=== PATIENT | male | born 1945 | race Caucasian/White ===

== ENCOUNTER 2018-05-18 11:40 | Inpatient (IN) | payer MEDICARE, OTHER ==
[~2018-05-18] VITALS: Ht 182.9 cm; Wt 129.3 kg
[~2018-05-18 11:40] MED LIST: ACYC800 PO; ASPI81EC PO; ATEN100 PO; Aspir 8181 MG PO; CELE200 PO; Cialis20 MG PO; Dyazide 37.5-21 EACH PO; LOSARTAN POTAS100 MG PO; NEBI10 PO; NIAC500 PO; PRED5 PO; SIMV40 PO
--- NOTE | 2018-05-19 07:00 | NUR ---
Pre-Op teaching done. Pt verbalizes understanding.Ambulatory in Day Surgery History, Chart, Medications and Allergies reviewed before start of procedure. Lungs clear T/O to Auscultation. Patient confirms NPO status and agrees with scheduled surgery.
--- NOTE | 2018-05-20 04:38 | NUR ---
SUMMARY: PT IS POD1 R SANDY. NO ACUTE CHANGE OVERNIGHT. A/O, VSS, PT EATING AND VOIDING. PAIN MANAGED WITH 1 OXYCODONE ABOUT Q4. PT ABLE TO WALK IN HALLS X2, SURGICAL SITE WNL. WORE CPAP WITH SLEEP. NO SAFETY CONCERNS AT THIST TIME.
[2018-05-20 05:51] LABS: BASOPHILS ABSOLUTE AUTO 0.02 K/mm3 (0.00-0.23); BASOPHILS PERCENT AUTO 0 % (0-2); EOSINOPHILS PERCENT AUTO 0 % (0-6); Hematocrit 36.7 % (37.0-53.0); Hemoglobin 11.7 g/dL (13.5-17.5); IMMATURE GRAN ABSOLUTE AUTO 0.13 K/mm3 (0.00-0.10); IMMATURE GRAN PERCENT AUTO 1 % (0-1); LYMPHOCYTES ABSOLUTE AUTO 1.06 K/mm3 (0.84-5.20); LYMPHOCYTES PERCENT AUTO 7 % (21-46); MONOCYTES ABSOLUTE AUTO 1.11 K/mm3 (0.16-1.47); MONOCYTES PERCENT AUTO 7 % (4-13); Mean Corpuscular HGB Conc 31.9 g/dL (31.5-36.5); Mean Corpuscular Volume 88 fL (80-100); Mean Platelet Volume 9.6 fL (9.1-12.4); NEUTROPHILS ABSOLUTE AUTO 12.63 K/mm3 (1.96-9.15); NEUTROPHILS PERCENT AUTO 85 % (41-73); Platelet Count 222 K/mm3 (150-400); RDW Coefficient Variation 13.7 % (11.7-14.2); RDW Standard Deviation 44.7 fL (35.1-46.3); Red Blood Cell Count 4.18 M/mm3 (4.30-5.90); White Blood Cell Count 14.95 K/mm3 (4.00-11.30)
[2018-05-20 06:14] LABS: Bun/Creatinine Ratio 26.9 (12.0-20.0); Calcium, Blood 8.5 mg/dL (8.5-10.1); Creatinine, Blood 1.3 mg/dL (0.60-1.20); Magnesium, Blood 2.3 mg/dL (1.6-2.4); Potassium, Blood 4.8 mmol/L (3.5-5.5)
[2018-05-20] MEDS ORDERED: OXYC5 PO (10:06)
[2018-05-20] MEDS ORDERED: ASPI325 PO (10:10)
--- NOTE | 2018-05-20 12:43 | NUR ---
PATIENT D/C'D HOME WITH SPOUSE AT THIS TIME; BOTH STATE UNDERSTANDING OF MEDS, WOUND CARE, F/U APPOINTMET, ACTIVITY, ETC. TOLERATING PO. VOIDING. PAIN CONTROLLED. NO ACUTE CHANGES OR C/O,
== END 2018-05-20 12:40 | disposition home or self-care (01) | DRG 470 ==
LOC: SURS 05-19 05:58 → PRE IP 05-19 07:30 → SURS 05-19 12:10
PROVIDERS: ADMIT Orthopaedic Surgery
PROC: 0SR90JA Replacement of Right Hip Joint with Synthetic Substitute, Uncemented, Open Approach (ICD-10-PCS; principal; 2018-05-19 07:30)
DX: M16.11 Unilateral primary osteoarthritis, right hip (principal); G47.33 Obstructive sleep apnea (adult) (pediatric); I10 Essential (primary) hypertension; M35.3 Polymyalgia rheumatica
CPT/HCPCS: 36415; 72170; 80048; 83735; 85025; 86850; 86900; 86901; 88300; 97110; 97116; 97162; 97530; C1713; C1776; J0171; J0690; J0735; J1100; J1885; J2250; J2405; J2795; J3010; J7120

== ENCOUNTER 2019-01-20 21:44 | Observation (INO) | payer MEDICARE, OTHER ==
[~2019-01-20] VITALS: Ht 182.9 cm; Wt 132.9 kg
[~2019-01-20 21:44] MED LIST changes: +ASPI325 PO; +OXYC5 PO
[2019-01-20] MEDS ORDERED: NAPR220 PO (22:08)
[2019-01-20 22:40] LABS: Influenza A Negative (NEGATIVE); Influenza B Negative (NEGATIVE)
[2019-01-20 22:44] LABS: BASOPHILS ABSOLUTE AUTO 0.05 K/mm3 (0.00-0.23); BASOPHILS PERCENT AUTO 0 % (0-2); EOSINOPHILS ABSOLUTE AUTO 0.08 K/mm3 (0.00-0.68); EOSINOPHILS PERCENT AUTO 1 % (0-6); Hematocrit 42.2 % (37.0-53.0); IMMATURE GRAN ABSOLUTE AUTO 0.06 K/mm3 (0.00-0.10); IMMATURE GRAN PERCENT AUTO 0 % (0-1); LYMPHOCYTES ABSOLUTE AUTO 1.06 K/mm3 (0.84-5.20); LYMPHOCYTES PERCENT AUTO 7 % (21-46); MONOCYTES PERCENT AUTO 8 % (4-13); Mean Corpuscular HGB 28.4 pg (26.0-34.0); Mean Corpuscular HGB Conc 33.2 g/dL (31.5-36.5); Mean Corpuscular Volume 86 fL (80-100); Mean Platelet Volume 9.8 fL (9.1-12.4); NEUTROPHILS PERCENT AUTO 84 % (41-73); Platelet Count 208 K/mm3 (150-400); RDW Coefficient Variation 13.6 % (11.7-14.2); Red Blood Cell Count 4.93 M/mm3 (4.30-5.90); White Blood Cell Count 15.65 K/mm3 (4.00-11.30)
[2019-01-20 23:02] LABS: Albumin, Blood 3.5 g/dL (3.4-5.0); Bilirubin, Total 0.5 mg/dL (0.1-1.0); Bun/Creatinine Ratio 24.6 (12.0-20.0); Calcium, Blood 9.4 mg/dL (8.5-10.1); Creatinine, Blood 1.38 mg/dL (0.60-1.20); Globulin, Blood 3.5 g/dL (2.2-4.0); Potassium, Blood 4.3 mmol/L (3.5-5.5)
[2019-01-20 23:19] LABS: Source, Urine Clean Catch
[2019-01-20 23:25] LABS: Bilirubin, Urine Neg (Neg); Blood, Urine 2+ (Neg); Glucose Qualitative, Urine Neg (Neg); Ketones, Urine Neg (Neg); Leukocyte Esterase, Urine Neg (Neg); Nitrite, Urine Neg (Neg); Protein, Urine 1+ (Neg); Specific Gravity, Urine 1.015 (1.003-1.022); Urobilinogen, Urine NORM (Normal)
[2019-01-20 23:30] LABS: Appearance, Urine Clear (Clear); Color, Urine Yellow (P-Yellow)
[2019-01-20 23:32] LABS: Bacteria Rare /hpf; Red Blood Cells, Urine 0-2 /hpf (0-2); Squamous Epithelial Cells Not Seen /hpf (Few); White Blood Cells, Urine 0-2 /hpf (0-5)
[2019-01-21 04:12] LABS: Adenovirus Not Detected (NOT DETECT); Bordetella pertussis Not Detected (NOT DETECT); Chlamydophila pneumoniae Not Detected (NOT DETECT); Coronavirus 229E Not Detected (NOT DETECT); Coronavirus HKU1 Not Detected (NOT DETECT); Coronavirus NL63 Not Detected (NOT DETECT); Coronavirus OC43 Not Detected (NOT DETECT); Human Metapneumovirus Not Detected (NOT DETECT); Human Rhinovirus/Enterovirus Not Detected (NOT DETECT); Influenza A Not Detected (NOT DETECT); Influenza A/2009-H1 Not Detected (NOT DETECT); Influenza A/H1 Not Detected (NOT DETECT); Influenza A/H3 Not Detected (NOT DETECT); Influenza B Not Detected (NOT DETECT); Mycoplasma pneumoniae Not Detected (NOT DETECT); Parainfluenza Virus 1 Not Detected (NOT DETECT); Parainfluenza Virus 2 Not Detected (NOT DETECT); Parainfluenza Virus 3 Not Detected (NOT DETECT); Parainfluenza Virus 4 Not Detected (NOT DETECT); Respiratory Syncytial Virus Not Detected (NOT DETECT)
--- NOTE | 2019-01-21 04:14 | NUR ---
PT ARRIVED TO THE FLOOR AT 0108 VIA STRETCHER. PT ABLE TO AMBULATE INDEPENDENTLY TO THE BED. NO CURRENT COMPLAINTS. PT DOESN'T HAVE ANY RIGORS OR FEVER AT THIS TIME. PT RECIEVED ANTIBIOTICS ORDERED. NO COMPLAINTS AT THIS TIME. WILL CONTINUE TO MONITOR.
[2019-01-21 05:21] LABS: Hematocrit 40.3 % (37.0-53.0); Hemoglobin 13.2 g/dL (13.5-17.5); Mean Corpuscular HGB 27.8 pg (26.0-34.0); Mean Corpuscular HGB Conc 32.8 g/dL (31.5-36.5); Mean Corpuscular Volume 85 fL (80-100); Mean Platelet Volume 10.2 fL (9.1-12.4); Platelet Count 194 K/mm3 (150-400); RDW Coefficient Variation 13.7 % (11.7-14.2); RDW Standard Deviation 42.6 fL (35.1-46.3); Red Blood Cell Count 4.74 M/mm3 (4.30-5.90)
[2019-01-21 05:45] LABS: Albumin, Blood 3.1 g/dL (3.4-5.0); Albumin/Globulin Ratio 0.8 (0.8-1.8); Bilirubin, Total 0.5 mg/dL (0.1-1.0); Calcium, Blood 9.1 mg/dL (8.5-10.1); Creatinine, Blood 1.27 mg/dL (0.60-1.20); Globulin, Blood 3.7 g/dL (2.2-4.0); Potassium, Blood 4.6 mmol/L (3.5-5.5); Total Protein, Blood 6.8 g/dL (6.4-8.2)
[2019-01-21 06:33] LABS: CPK Creatine Kinase 33 U/L (39-308)
--- NOTE | 2019-01-21 07:41 | NUR ---
REPORT CALLED REPORT TO AYUSH MEYER, PT TO GO TO ROOM 227
[2019-01-21] MEDS ORDERED: LEVO750 PO (15:36)
== END 2019-01-21 17:39 | disposition home or self-care (01) ==
LOC: ER 21:44 → SURS 21:45 → MEDS 21:45 → SURS 01-21 08:49
PROVIDERS: Emergency Medicine; ADMIT Internal Medicine
DX: R68.89 Other general symptoms and signs (principal); M16.10 Unilateral primary osteoarthritis, unspecified hip; M35.3 Polymyalgia rheumatica; I10 Essential (primary) hypertension; E78.5 Hyperlipidemia, unspecified; G47.33 Obstructive sleep apnea (adult) (pediatric); Z79.899 Other long term (current) drug therapy; Z79.52 Long term (current) use of systemic steroids
CPT/HCPCS: 0099U; 36415; 71046; 80053; 81001; 82550; 82947; 83605; 83690; 84145; 85025; 85027; 85651; 86140; 87040; 87077; 87186; 87804; 93306; 94660; 94762; 96361; 96365; 96367; 96372; 96375; 99284-25; G0378; J1100; J1650; J1956; J2543; J3370; J7030; J7050; J7512

== ENCOUNTER 2021-02-26 14:05 | Day surgery (SDC) | payer MEDICARE, OTHER ==
[~2021-02-26 14:05] MED LIST changes: +ASPI325EC PO; +BACTRIM DS TAB1 EACH PO; +ENOX40I SC; +LEVO750 PO; +NAPR220 PO; +PROM25 PO
== END 2021-02-26 14:24 | disposition home or self-care (01) ==
LOC: ORSCSDS 14:05
DX: M79.89 Other specified soft tissue disorders (principal); Z53.9 Procedure and treatment not carried out, unspecified reason

== ENCOUNTER → 2021-02-27 | Outpatient (CLI) | payer MEDICARE, OTHER | END | disposition home or self-care (01) | LOC: LAB SHORT 08:06 | DX: L82.1 Other seborrheic keratosis (principal); D04.62 Carcinoma in situ of skin of left upper limb, including shoulder | CPT/HCPCS: 88305 ==

== ENCOUNTER 2021-03-09 10:06 | Day surgery (SDC) | payer MEDICARE, OTHER ==
[~2021-03-09] VITALS: Ht 182.9 cm; Wt 126.8 kg
[2021-03-09] MEDS ORDERED: MODAFINIL100 M4 PO (11:02)
[2021-03-09] MEDS ORDERED: OZEMPIC1 MG/0.72 SC (11:03)
--- NOTE | 2021-03-09 11:32 | NUR ---
03/09/21 1132 Alfred Perales 0.25MG EPI ADDED TO 50ML 0.5% MARCAINE TO ACHIEVE SOLUTION OF 0.5% MARCAINE WITH EPI 1:200,000.
== END 2021-03-09 12:43 | disposition home or self-care (01) ==
LOC: ORSCSDS 10:06
PROVIDERS: Podiatrist Foot & Ankle Surgery
PROC: 0JBR0ZZ Excision of Left Foot Subcutaneous Tissue and Fascia, Open Approach (ICD-10-PCS; principal; 2021-03-09 11:30)
DX: M1A.9XX1 Chronic gout, unspecified, with tophus (tophi) (principal); I10 Essential (primary) hypertension; G47.33 Obstructive sleep apnea (adult) (pediatric); Z79.899 Other long term (current) drug therapy; E66.01 Morbid (severe) obesity due to excess calories; Z68.38 Body mass index [BMI] 38.0-38.9, adult
CPT/HCPCS: 88305; 89060; J0171; J0690; J1100; J2250; J2405; J2704; J3010; J7120

== ENCOUNTER 2021-03-14 06:45 | Inpatient (IN) | payer MEDICARE, OTHER ==
[~2021-03-14] VITALS: Ht 182.9 cm; Wt 128.2 kg
[~2021-03-14 06:45] MED LIST changes: +MODAFINIL100 M4 PO; +OZEMPIC1 MG/0.72 SC
--- NOTE | 2021-03-14 06:55 | NUR ---
RN CALLED PT HE HAD NOT ARRIVED AT 0630, PT STATES THAT HE WAS SENT A TEXT MESSAGE TO COME IN AT 7:30, WHICH IS CASE TIME START. WILL LOOK INTO THAT. PT ARRIVES BYHIMSELF. Ambulatory in Day Surgery. History, Chart, Medications and Allergies reviewed before start of procedure. Lungs clear T/O to Auscultation. Patient confirms NPO status and agrees with scheduled surgery. Pre-Op teaching done. Pt verbalizes understanding.
--- NOTE | 2021-03-14 08:54 | NUR ---
03/14/21 0854 Gene Allan RIGHT ARMPIT PREPPED WITH HYDROGEN PEROXIDE, RIGHT SHOULDER AND RUE PREPPED WITH ALCOHOL BY DANAY
[2021-03-14] MEDS ORDERED: OXAYDO5 M2 PO (16:08)
[2021-03-14] MEDS ORDERED: SULTRIDS PO (16:09)
[2021-03-14] MEDS ORDERED: PROM25 PO (16:09)
--- NOTE | 2021-03-14 16:42 | NUR ---
DISCHARGE NOTE: PATIENT WAS EDUCATED ON DISCHARGE INSTRUCTIONS. HE VERBALIZED UNDERSTANDING OF INSTRUCTIONS. PATIENT ALREADY HAD HIS HARD PERSCRIPTIONS FILLED OUT PRIOR TO PROCEDURE. PAIN IS TOLERATED WITH PO PAIN MEDICATIONS. RIGHT SHOULDER HAD A BULKY DRESSING THAT WAS C/D/I AND WAS GIVEN A FEW AQUACELS TO CHANGE PRN. PATIENT HAD FULL SENSATION IN RIGHT ARM. DENIED NUMBNESS AND TINGLING. HE TOLERATED PO INTAKE AND WAS VOIDING. PATIENT WAS DRESSED AND HAD HIS PERSONAL ITEMS IN BAGS. HE WAS WHEELCHAIRED OUT TO HIS WIFES CAR WHO IS TAKING HIM HOME. IV WAS TAKEN OUT AND WAS WNL.
== END 2021-03-14 16:42 | disposition home or self-care (01) | DRG 483 ==
LOC: ORSCMMR 06:45 → SURS 07:07 → ORSCMMR 07:07 → ORD 07:30 → ORSCMMR 07:30 → SURS 11:53
PROVIDERS: ADMIT Orthopaedic Surgery
PROC: 0RRJ0JZ Replacement of Right Shoulder Joint with Synthetic Substitute, Open Approach (ICD-10-PCS; principal; 2021-03-14 07:30)
DX: M19.011 Primary osteoarthritis, right shoulder (principal); I10 Essential (primary) hypertension; G47.33 Obstructive sleep apnea (adult) (pediatric); F17.210 Nicotine dependence, cigarettes, uncomplicated; M19.111 Post-traumatic osteoarthritis, right shoulder; E66.9 Obesity, unspecified; Z96.653 Presence of artificial knee joint, bilateral; Z98.890 Other specified postprocedural states; Z68.38 Body mass index [BMI] 38.0-38.9, adult
CPT/HCPCS: 73030; 97161; 97530; A9270; C1713; C1776; J0171; J0690; J0696; J1100; J1170; J1885; J2370; J2405; J2704; J3010; J3370; J7050; J7120

== ENCOUNTER → 2021-10-16 | Outpatient (CLI) | payer MEDICARE, OTHER ==
[~2021-10-16] MED LIST changes: +OXAYDO5 M2 PO; +SULTRIDS PO
[2021-10-16 10:58] LABS: BASOPHILS ABSOLUTE AUTO 0.03 K/mm3 (0.00-0.23); BASOPHILS PERCENT AUTO 0 % (0-2); EOSINOPHILS ABSOLUTE AUTO 0.22 K/mm3 (0.00-0.68); EOSINOPHILS PERCENT AUTO 3 % (0-6); Hemoglobin 13.4 g/dL (13.5-17.5); IMMATURE GRAN ABSOLUTE AUTO 0.02 K/mm3 (0.00-0.10); IMMATURE GRAN PERCENT AUTO 0 % (0-1); LYMPHOCYTES ABSOLUTE AUTO 1.85 K/mm3 (0.84-5.20); LYMPHOCYTES PERCENT AUTO 26 % (21-46); MONOCYTES ABSOLUTE AUTO 0.64 K/mm3 (0.16-1.47); MONOCYTES PERCENT AUTO 9 % (4-13); Mean Corpuscular HGB 27.5 pg (26.0-34.0); Mean Corpuscular HGB Conc 32.7 g/dL (31.5-36.5); Mean Corpuscular Volume 84 fL (80-100); Mean Platelet Volume 10.1 fL (9.1-12.4); NEUTROPHILS ABSOLUTE AUTO 4.34 K/mm3 (1.96-9.15); NEUTROPHILS PERCENT AUTO 61 % (41-73); Platelet Count 217 K/mm3 (150-400); RDW Coefficient Variation 14.6 % (11.7-14.2); RDW Standard Deviation 44.3 fL (35.1-46.3); Red Blood Cell Count 4.87 M/mm3 (4.30-5.90)
[2021-10-16 13:13] LABS: Alanine Aminotransfer (ALT/SGP 27 U/L (12-78); Albumin, Blood 3.6 g/dL (3.4-5.0); Albumin/Globulin Ratio 0.9 (0.8-1.8); Alk Phos 88 U/L (50-136); Anion Gap 7 mmol/L (6-16); Aspartate Aminotrans (AST/SGOT 13 U/L (12-37); Bilirubin, Total 0.4 mg/dL (0.1-1.0); Blood Urea Nitrogen 25 mg/dL (8-24); Bun/Creatinine Ratio 22.5 (12.0-20.0); CHOL/HDL RATIO 3.5; CO2, Blood 26 mmol/L (21-32); Chloride, Blood 106 mmol/L (98-108); Cholesterol 149 mg/dL (50-200); Creatinine, Blood 1.11 mg/dL (0.60-1.20); Globulin, Blood 3.8 g/dL (2.2-4.0); Glomerular Filtration Rate 70 (60-); Glucose, Blood 96 mg/dL (70-99); HDL Cholesterol 42 mg/dL (>39); LDL/HDL RATIO 1.9; Low Density Lipoprotein Chol 78 mg/dL (0-110); Potassium, Blood 4.3 mmol/L (3.5-5.5); Sodium, Blood 139 mmol/L (136-145); Total Protein, Blood 7.4 g/dL (6.4-8.2); Triglycerides 146 mg/dL (30-160); Very Low Density Lipoprot Chol 29 mg/dL (6-32)
[2021-10-16 13:17] LABS: Calcium, Blood 9.8 mg/dL (8.5-10.1)
== END ==
LOC: LAB SHORT 09:20
PROVIDERS: Internal Medicine
DX: I10 Essential (primary) hypertension (principal); E78.5 Hyperlipidemia, unspecified; R73.9 Hyperglycemia, unspecified
CPT/HCPCS: 80053; 80061; 83036; 85025

== ENCOUNTER 2022-02-08 09:13 | Emergency (ER) | payer MEDICARE, OTHER ==
[~2022-02-08] VITALS: Ht 182.9 cm; Wt 117.9 kg
== END 2022-02-08 10:27 | disposition home or self-care (01) ==
LOC: ER 09:13
DX: S01.01XA Laceration without foreign body of scalp, initial encounter (principal); W18.09XA Striking against other object with subsequent fall, initial encounter; Z79.899 Other long term (current) drug therapy
CPT/HCPCS: 12002; 99282-25

== ENCOUNTER 2023-01-20 12:41 | Day surgery (SDC) | payer MEDICARE, OTHER ==
[~2023-01-20] VITALS: Ht 182.9 cm; Wt 124.5 kg
--- NOTE | 2023-01-20 14:35 | NUR ---
01/20/23 1435 Saima Gan VERBAL ORDER CALLED TO PHARMACY FOR MD [place] FOR LEVSIN VIAL .125MG IV TO BE SENT BUT WE FINISHED THE CASE BEFORE HE COULD GIVE IT.
[2023-01-20 15:21] VITALS: BP 112/71
== END 2023-01-20 15:15 | disposition home or self-care (01) ==
LOC: ORSCSDS 12:41
PROVIDERS: Internal Medicine Gastroenterology
PROC: 0DBL8ZX Excision of Transverse Colon, Via Natural or Artificial Opening Endoscopic, Diagnostic (ICD-10-PCS; principal; 2023-01-20 14:00)
PROC: 0DBM8ZX Excision of Descending Colon, Via Natural or Artificial Opening Endoscopic, Diagnostic (ICD-10-PCS; principal; 2023-01-20 14:00)
PROC: 0DBC8ZX Excision of Ileocecal Valve, Via Natural or Artificial Opening Endoscopic, Diagnostic (ICD-10-PCS; principal; 2023-01-20 14:00)
DX: Z12.11 Encounter for screening for malignant neoplasm of colon (principal); Z86.010 Personal history of colon polyps; D12.3 Benign neoplasm of transverse colon; D12.4 Benign neoplasm of descending colon; K57.30 Diverticulosis of large intestine without perforation or abscess without bleeding; K64.8 Other hemorrhoids; G47.33 Obstructive sleep apnea (adult) (pediatric); E66.9 Obesity, unspecified; Z68.39 Body mass index [BMI] 39.0-39.9, adult; N18.9 Chronic kidney disease, unspecified; I10 Essential (primary) hypertension; Z68.38 Body mass index [BMI] 38.0-38.9, adult; Z79.899 Other long term (current) drug therapy
CPT/HCPCS: 88305; J1980; J2704; J7120

== ENCOUNTER 2023-05-16 07:32 | Day surgery (SDC) | payer MEDICARE, OTHER ==
[~2023-05-16] VITALS: Ht 182.9 cm; Wt 129.4 kg
--- NOTE | 2023-05-16 09:30 | NUR ---
05/16/23 0930 Damari Schofield 0928: TIMEOUT COMPLETED FOR BLOCK
--- NOTE | 2023-05-16 11:59 | NUR ---
05/16/23 1159 Darrell Yañez ROPIVACAINE 0.5% 20MLS MIXED & VERIFIED W/ EPI 0.1 ML (1MG/ML) TO MAKE ROPIVACAINE 0.5% 1:200,000 FOR INJECTION AT OPSITE BY DR WOO. 20 MLS INJECTED.
[2023-05-16 12:30] VITALS: BP 120/75
--- NOTE | 2023-05-16 12:30 | NUR ---
05/16/23 1230 Abena Montgomery TURNED O2 DOWN TO 3L INSTEAD OF 6L. PT MAINTAINED AT 99-100%. TURNED O2 OFF. PT IS MAINTAINING O2 OF 100% AT THIS TIME.
== END 2023-05-16 13:16 | disposition home or self-care (01) ==
LOC: ORSCSDS 07:32
PROVIDERS: Podiatrist Foot & Ankle Surgery
PROC: 0SCF0ZZ Extirpation of Matter from Right Ankle Joint, Open Approach (ICD-10-PCS; principal; 2023-05-16 09:15)
PROC: 0SGH04Z Fusion of Right Tarsal Joint with Internal Fixation Device, Open Approach (ICD-10-PCS; principal; 2023-05-16 09:15)
DX: M21.41 Flat foot [pes planus] (acquired), right foot (principal); M19.071 Primary osteoarthritis, right ankle and foot; M24.071 Loose body in right ankle; I10 Essential (primary) hypertension; G47.33 Obstructive sleep apnea (adult) (pediatric); E66.9 Obesity, unspecified; Z68.38 Body mass index [BMI] 38.0-38.9, adult; Z79.899 Other long term (current) drug therapy
CPT/HCPCS: A9270; C1713; C1734; C1769; J0171; J0690; J1100; J2405; J2704; J2765; J2795; J3010; J7120

== ENCOUNTER 2023-11-14 06:06 | Day surgery (SDC) | payer MEDICARE, OTHER ==
[~2023-11-14] VITALS: Ht 182.9 cm; Wt 127.6 kg
[2023-11-14] MEDS ORDERED: Lactated Ringer's 1,000 ML IV ONE ×2 (06:10→07:19)
[2023-11-14] MEDS ORDERED: CeFAZolin Sodium 3,000 MG in NS 100 ML IV SCH (06:45)
[2023-11-14] MEDS ORDERED: Midazolam HCl 1MG / ML 2ML Vial ONE (06:48)
[2023-11-14] MEDS ORDERED: Rocuronium Bromide 10 MG/ML 5ML Injection IV ONE (06:48)
[2023-11-14] MEDS ORDERED: propofoL 40 ML IV ONE (06:48)
[2023-11-14] MEDS ORDERED: FentaNYL Citrate 50 MCG/ML 2 ML Injection ONE (06:48)
[2023-11-14] MEDS ORDERED: Simvastatin40 MG (06:53)
[2023-11-14] MEDS ORDERED: Ropivacaine 0.5% HCL/PF 5 MG/ML 30ML Vial ONE (07:03)
[2023-11-14] MEDS ORDERED: Dexmedetomidine HCL 200 MCG / 2 ML ONE (07:11)
[2023-11-14] MEDS ORDERED: Phenylephrine HCl 100 MCG/ML-NS 10MLSYR (1MG/10ML) ONE (07:47)
[2023-11-14] MEDS ORDERED: EPINEPhrine HCl 1 MG/ML 1ML Amp XX ONE (07:47)
[2023-11-14] MEDS ORDERED: Bupivacaine HCl 0.25% 30 ML Injection ONE (07:51)
[2023-11-14] MEDS ORDERED: Ondansetron HCl 2 MG / ML 2ML Vial ONE (07:56)
[2023-11-14 09:05] VITALS: BP 128/75
--- NOTE | 2023-11-14 09:06 | NUR ---
11/14/23 0906 RIVKA NESS PT DOING WELL. DENIES PAIN AND NAUSEA. AT BEDSIDE.
== END 2023-11-14 09:15 | disposition home or self-care (01) ==
LOC: ORSCSDS 06:06
PROVIDERS: Podiatrist Foot & Ankle Surgery
PROC: 0QP104Z Removal of Internal Fixation Device from Sacrum, Open Approach (ICD-10-PCS; principal; 2023-11-14 07:30)
DX: T84.119A Breakdown (mechanical) of internal fixation device of unspecified bone of limb, initial encounter (principal); I10 Essential (primary) hypertension; Z79.899 Other long term (current) drug therapy; E66.9 Obesity, unspecified; Z68.38 Body mass index [BMI] 38.0-38.9, adult; Z87.891 Personal history of nicotine dependence
CPT/HCPCS: J0171; J0690; J2250; J2371; J2405; J2704; J2795; J3010; J7120

== ENCOUNTER → 2024-04-09 | Outpatient (CLI) | payer MEDICARE, OTHER ==
[~2024-04-09] MED LIST changes: +Simvastatin40 MG
[2024-04-09 14:13] LABS: BASOPHILS ABSOLUTE AUTO 0.03 K/mm3 (0.00-0.23); BASOPHILS PERCENT AUTO 1 % (0-2); EOSINOPHILS ABSOLUTE AUTO 0.24 K/mm3 (0.00-0.68); EOSINOPHILS PERCENT AUTO 4 % (0-6); Hematocrit 43.3 % (37.0-53.0); Hemoglobin 14.7 g/dL (13.5-17.5); IMMATURE GRAN ABSOLUTE AUTO 0.01 K/mm3 (0.00-0.10); IMMATURE GRAN PERCENT AUTO 0 % (0-1); LYMPHOCYTES ABSOLUTE AUTO 1.31 K/mm3 (0.84-5.20); LYMPHOCYTES PERCENT AUTO 22 % (21-46); MONOCYTES PERCENT AUTO 9 % (4-13); Mean Corpuscular HGB 27.8 pg (26.0-34.0); Mean Corpuscular HGB Conc 33.9 g/dL (31.5-36.5); Mean Corpuscular Volume 82 fL (80-100); Mean Platelet Volume 10.5 fL (9.1-12.4); NEUTROPHILS ABSOLUTE AUTO 3.82 K/mm3 (1.96-9.15); NEUTROPHILS PERCENT AUTO 65 % (41-73); Platelet Count 216 K/mm3 (150-400); RDW Coefficient Variation 14.1 % (11.7-14.2); RDW Standard Deviation 41.5 fL (35.1-46.3); Red Blood Cell Count 5.28 M/mm3 (4.30-5.90); White Blood Cell Count 5.91 K/mm3 (4.00-11.30)
[2024-04-09 14:31] LABS: Alanine Aminotransfer (ALT/SGP 21 U/L (12-78); Albumin, Blood 3.5 g/dL (3.4-5.0); Alk Phos 103 U/L (50-136); Anion Gap 9 mmol/L (3-11); Aspartate Aminotrans (AST/SGOT 14 U/L (12-37); Bilirubin, Total 0.5 mg/dL (0.1-1.0); Blood Urea Nitrogen 25 mg/dL (8-24); Bun/Creatinine Ratio 23.6 (12.0-20.0); CO2, Blood 22 mmol/L (21-32); Calcium, Blood 9.6 mg/dL (8.5-10.1); Chloride, Blood 113 mmol/L (98-108); Cholesterol 149 mg/dL (50-200); Creatinine, Blood 1.06 mg/dL (0.60-1.20); Globulin, Blood 3.6 g/dL (2.2-4.0); Glomerular Filtration Rate 72 (60-); Glucose, Blood 117 mg/dL (70-99); HDL Cholesterol 37 mg/dL (>39); Low Density Lipoprotein Chol 76 mg/dL (0-110); Potassium, Blood 4.2 mmol/L (3.5-5.5); Sodium, Blood 140 mmol/L (136-145); Total Protein, Blood 7.1 g/dL (6.4-8.2); Triglycerides 181 mg/dL (30-160); Very Low Density Lipoprot Chol 36 mg/dL (6-32)
== END | disposition home or self-care (01) ==
LOC: LAB SHORT 10:58 → LAB 10:58
PROVIDERS: Internal Medicine
DX: Z12.5 Encounter for screening for malignant neoplasm of prostate (principal); E78.5 Hyperlipidemia, unspecified; I10 Essential (primary) hypertension; R73.9 Hyperglycemia, unspecified
CPT/HCPCS: 80053; 80061; 83036; 85025; G0103